=== PATIENT | male | born 2000 | race Two or more races ===

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

== ENCOUNTER 2019-01-30 16:27 | Emergency (ER) | payer OTHER, BC ==
[2019-01-30] MEDS ORDERED: Nicotine GUM* 2 MG PO PRN (17:28)
--- NOTE | 2019-01-30 17:30 | ED ---
Psychiatric Complaint - HPI Summary HPI Summary: Pt is a 18 y/o M presenting to the ED with a chief psychiatric complaint. He states he took about five tablets of 100mg Seroquel with the intention of not waking up today. When he did wake up, he told two of his friends who decided to bring him here. He currently reports SI with some abrasions on his arm. - History Of Current Complaint Chief Complaint: EDMentalHealth Time Seen by Provider: 01/30/19 17:12 Accompanied By: two friends Hx Obtained From: Patient Onset/Duration: Lasting Days, Still Present Timing: Days Severity Initially: Moderate Severity Currently: Moderate Character: Depressed Aggravating Factor(s): Nothing Alleviating Factor(s): Nothing Associated Signs And Symptoms: Positive: Negative Related History: Positive For: Prior Psychiatric Issues Has Suicidal: Reports: Thoughts, With A Plan, Has Prior Attempt(s) Ingestion History: Type/Name Of Drug - Seroquel, Amount Ingested - 5 tablets of 100mg, Approximate Time Of Ingestion - 0200 - Allergies/Home Medications Allergies/Adverse Reactions: Allergies Allergy/AdvReac Type Severity Reaction Status Date / Time No Known Allergies Allergy Verified 09/05/17 15:13 Home Medications: Home Medications Escitalopram * [Lexapro 10 mg (NF)] 10 mg PO DAILY 01/30/19 [History Confirmed 01/30/19] QUEtiapine TAB* [Seroquel 100 MG *] 100 mg PO BEDTIME 01/30/19 [History Confirmed 01/30/19] PMH/Surg Hx/FS Hx/Imm Hx Previously Healthy: Yes Endocrine/Hematology History: Denies: Hx Anticoagulant Therapy Cardiovascular History: Denies: Hx Hypertension Respiratory History: Reports: Hx Asthma Sensory History: Denies: Hx Contacts or Glasses, Hx Hearing Aid Opthamlomology History: Denies: Hx Contacts or Glasses Psychiatric History: Denies: Hx Eating Disorder, Hx Inpatient Treatment, Hx Community Mental Health Tx, Hx of Violent Episodes Against Others - Surgical History Surgery Procedure, Year, and Place: bilateral ear lobe age 14 Infectious Disease History: No Infectious Disease History: Denies: Traveled Outside the [place] in Last 30 Days - Family History Known Family History: Positive: Other - depression - Social History Alcohol Use: Occasionally Hx Substance Use: Yes Substance Use Type: Reports: Marijuana Substance Use Comment - Amount & Last Used: 2-3 week Hx Tobacco Use: Yes Smoking Status (MU): Light Every Day Tobacco Smoker Amount Used/How Often: 2-3 cigarettes per week Review of Systems Positive: Other - abrasions on R arm Positive: Depressed All Other Systems Reviewed And Are Negative: Yes Physical Exam - Summary Physical Exam Summary: Appearance: The patient is well-nourished in no acute distress and in no acute pain. Skin: The skin is warm and dry and skin color reflects adequate perfusion. There are superficial lacerations to the R forearm HEENT: The head is normocephalic and atraumatic. The pupils are equal and reactive. The conjunctivae are clear and without drainage. Nares are patent and without drainage. Mouth reveals moist mucous membranes and the throat is without erythema and exudate. The external ears are intact. The ear canals are patent and without drainage. The tympanic membranes are intact. Neck: The neck is supple with full range of motion and non-tender. There are no carotid bruits. There is no neck vein distension. Respiratory: Chest is non-tender. Lungs are clear to auscultation and breath sounds are symmetrical and equal. Cardiovascular: Heart is regular rate and rhythm. There is no murmur or rub auscultated. There is no peripheral edema and pulses are symmetrical and equal. Abdomen: The abdomen is soft and non-tender. There are normal bowel sounds heard in all four quadrants and there is no organomegaly palpated. Musculoskeletal: There is no back tenderness noted. Extremities are non-tender with full range of motion. There is good capillary refill. There is no peripheral edema or calf tenderness elicited. Neurological: Patient is alert and oriented to person, place and time. The patient has symmetrical motor strength in all four extremities. Cranial nerves are grossly intact. Deep tendon reflexes are symmetrical and equal in all four extremities. Triage Information Reviewed: Yes Vital Signs On Initial Exam: Initial Vitals Temp Pulse Resp BP Pulse Ox 98.6 F 101 20 148/100 95 01/30/19 16:35 01/30/19 16:35 01/30/19 16:35 01/30/19 16:35 01/30/19 16:35 Vital Signs Reviewed: Yes Diagnostics - Vital Signs Vital Signs Temp Pulse Resp BP Pulse Ox 01/30/19 16:35 98.6 F 101 20 148/100 95 - Laboratory Result Diagrams: 01/30/19 17:40 01/30/19 17:40 Lab Statement: Any lab studies that have been ordered have been reviewed, and results considered in the medical decision making process. - EKG 174 Cardiac Rate: NL - 89bpm EKG Rhythm: Sinus Rhythm ST Segment: Normal Ectopy: None Summary of EKG Findings: EKG at 1741 shows NSR at 89bpm with no STEMI. Course/Dx - Course Course Of Treatment: Mr. Matthews says that he took an overdose of seroquel about 2 in the morning in order to end it all. When he woke up he told a couple of his friends and they brought him here. He was nontoxic in appearance with stable vitals. He has some superficial lacerations in his right volar forearm. He states this is not the first time he has done that. He's also had suicidal ideation the past and says that he's tried to jump off a bridge before. He is being observed here while labs were obtained because of the overdose and he will be medically cleared and sent to the flex unit. - Differential Dx/Clinical Impression Provider Diagnosis: Overdose Discharge - Sign-Out/Discharge Documenting (check all that apply): Sign-Out Patient Signing out patient TO: Kirt Kirkland Patient Received Moderate/Deep Sedation with Procedure: No - Discharge Plan Condition: Stable Referrals: [facility] [place] [Primary Care Provider] - - Billing Disposition and Condition Condition: STABLE - Attestation Statements Document Initiated by Scribe: Yes Documenting Scribe: Shira Lara Provider For Whom Scribe is Documenting (Include Credential): Alfred Green MD. Scribe Attestation: Shira Cordero, patyed for Alfred Green MD. on 01/30/19 at 1812. Scribe Documentation Reviewed: Yes Provider Attestation: The documentation as recorded by the scribeShira accurately reflects the service I personally performed and the decisions made by me, Alfred Green MD. Status of Scribe Document: Viewed
[2019-01-30 17:49] LABS: ABS Basophils 0.1 10^3/ul (0-0.2); ABS Eosinophils 0.2 10^3/ul (0-0.6); ABS Lymphocytes 1.4 10^3/ul (1.0-4.8); ABS Monocytes 0.7 10^3/ul (0-0.8); ABS Neutrophils 4.8 10^3/ul (1.5-7.7); ABS Nucleated RBC 0 10^3/ul; Eosinophil % 2.7 %; Hematocrit 45 % (36-46); Hemoglobin 15.9 g/dL (14.0-18.0); Lymphocyte % 19.9 %; Mean Corpuscular HGB Conc 35 g/dL (31-36); Mean Corpuscular Hemoglobin 31 pg (27-31); Mean Corpuscular Volume 88 fL (80-94); Mean Platelet Volume 7.4 fL (7.4-10.4); Nucleated Red Blood Cells % 0.2; Platelet Count 225 10^3/uL (150-450); Red Cell Distribution Width 14 % (10.5-15); White Blood Count 7.1 10^3/uL (3.5-10.8)
[2019-01-30 18:03] LABS: Urine Appearance Clear; Urine Bilirubin Negative (Negative); Urine Blood Negative (Negative); Urine Color Yellow; Urine Glucose Negative (Negative); Urine Ketones Negative (Negative); Urine Nitrite Negative (Negative); Urine Protein Negative (Negative); Urine Urobilinogen Negative (Negative)
[2019-01-30 18:04] LABS: ALT 212 U/L (7-52); AST 88 U/L (13-39); Albumin 4.6 g/dL (3.2-5.2); Albumin/Globulin Ratio 1.6 (1-3); Alkaline Phosphatase 69 U/L (34-104); Anion Gap 7 mmol/L (2-11); BUN/Creatinine Ratio 14.5 (8-20); Blood Urea Nitrogen 11 mg/dL (6-24); CO2 Carbon Dioxide 28 mmol/L (22-32); Calcium 9.4 mg/dL (8.6-10.3); Chloride 103 mmol/L (101-111); EGFR African American 159.9 (>60); EGFR Non-African American 132.1 (>60); Globulin 2.9 g/dL (2-4); Glucose 95 mg/dL (70-100); Potassium 4.3 mmol/L (3.5-5.0); Sodium 138 mmol/L (135-145); Total Protein 7.5 g/dL (6.4-8.9)
[2019-01-30 18:12] LABS: Urine Benzodiazepine Screen Presumptive Positive (None Detect); Urine Opiates Screen None Detected (None Detect)
[2019-01-30 18:38] LABS: Acetaminophen < 15 mcg/mL; Alcohol < 10 mg/dL (<10); Salicylate < 2.50 mg/dL (<30)
--- NOTE | 2019-01-31 06:03 | ED ---
Progress - Progress Note Progress Note: Patient was signed out from Dr. Green upon shift change pending MHE and disposition. Per MHE, the patient will be held until the morning when Dr. King will evaluate the patient. Patient will be signed out to Dr. Greenwood upon shift change pending evaluation by Dr. King. - Consult/PCP Time Called: 20:00 Course/Dx - Course Course Of Treatment: Patient was signed out from Dr. Green upon shift change pending MHE and disposition. Per MHE, the patient will be held until the morning when Dr. King will evaluate the patient. Patient will be signed out to Dr. Gerenwood upon shift change pending evaluation by Dr. King. - Diagnoses Provider Diagnoses: Overdose Discharge - Sign-Out/Discharge Documenting (check all that apply): Sign-Out Patient, Receiving Sign-Out Signing out patient TO: Chris Greenwood - Upon shift change pending evaluation by Dr. King Receiving patient FROM: Alfred Green - Upon shift change pending MHE and disposition - Discharge Plan Condition: Stable Referrals: [facility] [Outside] - 1 Week (It is recommended that you contact the counseling center to discuss setting up an appointment for mental health and substance use counseling. ) [facility] - [place] [Primary Care Provider] - - Billing Disposition and Condition Condition: STABLE - Attestation Statements Document Initiated by Ankuribe: Yes Documenting Scribe: Shanda Mari Provider For Whom Jean-Pierre is Documenting (Include Credential): Dr. Kirt Kirkland MD Scribe Attestation: I, Shanda Mari, scribed for Dr. Kirt Kirkland MD on 01/31/19 at 0642. Scribe Documentation Reviewed: Yes Provider Attestation: The documentation as recorded by the Shanda foster accurately reflects the service I personally performed and the decisions made by me, Dr. Kirt Kirkland MD Status of Scribe Document: Viewed
--- NOTE | 2019-01-31 07:03 | ED ---
Progress - Progress Note Progress Note: Patient was signed out from Dr. Kirkland upon shift change pending evaluation by Dr. King and disposition. Per E, the patient will be held until the morning when Dr. King will evaluate the patient. Per Dr. King, at 1331, patient will be discharged with unspecified depression and should follow up with [facility]. - Consult/PCP Time Called: 20:00 Course/Dx - Course Course Of Treatment: Patient was signed out from Dr. Kirkland upon shift change pending evaluation by Dr. King and disposition. Per E, the patient will be held until the morning when Dr. King will evaluate the patient. Per Dr. King, at 1331, patient will be discharged with unspecified depression and should follow up with [facility]. - Diagnoses Provider Diagnoses: Depression Discharge - Sign-Out/Discharge Documenting (check all that apply): Patient Departure, Receiving Sign-Out Receiving patient FROM: Kirt Kirkland Patient Received Moderate/Deep Sedation with Procedure: No - Discharge Plan Condition: Stable Disposition: HOME Referrals: [facility] [Outside] - 1 Week (It is recommended that you contact the counseling center to discuss setting up an appointment for mental health and substance use counseling. ) [facility] - MR,Henry [Primary Care Provider] - - Attestation Statements Document Initiated by Scribe: Yes Documenting Scribe: Leighton Jones Provider For Whom Jean-Pierre is Documenting (Include Credential): Chris Greenwood MD Scribe Attestation: Leighton Cordero, scribed for Chris Greenwood MD on 01/31/19 at 1330. Status of Scribe Document: Ready
[2019-01-31 13:51] VITALS: BP 150/74
== END 2019-01-31 13:50 | disposition home or self-care (01) ==
LOC: ED 16:27
DX: T43.592A Poisoning by other antipsychotics and neuroleptics, intentional self-harm, initial encounter (principal); J45.909 Unspecified asthma, uncomplicated; F17.210 Nicotine dependence, cigarettes, uncomplicated
CPT/HCPCS: 36415; 80053; 80307; 80320; 80329; 81003; 83605; 85025; 93005; 99285; A9270-GY; G0480

== ENCOUNTER 2019-07-23 00:46 | Inpatient (IN) | payer OTHER, BC ==
--- NOTE | 2019-07-23 01:20 | ED ---
Psychiatric Complaint - HPI Summary HPI Summary: This patient is a 19 year old M presenting to [facility] with a chief complaint of depression and suicidal thoughts since 2 months ago. It has been building up over time. Pt reports cutting his right wrist with a straight razor. A friend drove him to the hospital. Pt feels overwhelmed by school and put his mental health on the back burner. Pt has PMHx of asthma. - History Of Current Complaint Chief Complaint: EDSuicidal Time Seen by Provider: 07/23/19 01:09 Hx Obtained From: Patient Onset/Duration: Gradual Onset, Lasting Weeks, Still Present Timing: Constant Severity Initially: Moderate Severity Currently: Severe Character: Depressed Aggravating Factor(s): Recent Stress Alleviating Factor(s): Nothing Associated Signs And Symptoms: Positive: Social Withdrawal Has Suicidal: Reports: Thoughts, Demonstrates Gesture Recent Stressor(s): School - Allergies/Home Medications Allergies/Adverse Reactions: Allergies Allergy/AdvReac Type Severity Reaction Status Date / Time No Known Allergies Allergy Verified 01/31/19 13:49 PMH/Surg Hx/FS Hx/Imm Hx Endocrine/Hematology History: Denies: Hx Anticoagulant Therapy Cardiovascular History: Denies: Hx Hypertension Respiratory History: Reports: Hx Asthma Sensory History: Denies: Hx Contacts or Glasses, Hx Hearing Aid Opthamlomology History: Denies: Hx Contacts or Glasses Psychiatric History: Denies: Hx Eating Disorder, Hx Inpatient Treatment, Hx Community Mental Health Tx, Hx of Violent Episodes Against Others - Surgical History Surgery Procedure, Year, and Place: bilateral ear lobe age 14 Infectious Disease History: No Infectious Disease History: Reports: Traveled Outside the [place] in Last 30 Days - Family History Known Family History: Positive: Other - depression - Social History Alcohol Use: Occasionally Hx Substance Use: Yes Substance Use Type: Reports: Marijuana Substance Use Comment - Amount & Last Used: 2-3 week Hx Tobacco Use: Yes Smoking Status (MU): Light Every Day Tobacco Smoker Amount Used/How Often: 2-3 cigarettes per week Review of Systems Negative: Fever Positive: Depressed All Other Systems Reviewed And Are Negative: Yes Physical Exam - Summary Physical Exam Summary: Appearance: Well-appearing, Well-nourished, lying in bed comfortable Skin: Warm, dry, no obvious rash Eyes: sclera anicteric, no conjunctival pallor ENT: mucous membranes moist Neck: deferred Respiratory: No signs of respiratory distress Cardiovascular: Appears well perfused, pulses are nml Abdomen: deferred Musculoskeletal: Moving all 4 extremities without obvious discomfort Neurological: Awake and alert, mentation is normal, speech is fluent and appropriate Psychiatric: affect is normal, does not appear anxious or depressed Triage Information Reviewed: Yes Vital Signs On Initial Exam: Initial Vitals Temp Pulse Resp BP Pulse Ox 98.1 F 82 16 140/73 97 07/23/19 00:47 07/23/19 00:47 07/23/19 00:47 07/23/19 00:47 07/23/19 00:47 Vital Signs Reviewed: Yes Procedures - Sedation Patient Received Moderate/Deep Sedation with Procedure: No Diagnostics - Vital Signs Vital Signs Temp Pulse Resp BP Pulse Ox 07/23/19 00:47 98.1 F 82 16 140/73 97 - Laboratory Result Diagrams: 07/23/19 01:21 07/23/19 01:21 Lab Statement: Any lab studies that have been ordered have been reviewed, and results considered in the medical decision making process. Re-Evaluation - Re-Evaluation First Eval Re-Evaluation Time: 13:19 Comment: Pt is medically cleared. Second Eval Re-Evaluation Time: 03:04 Comment: Dr. Valenzuela accepts pt for admission. Course/Dx - Course Course Of Treatment: This patient is a 19 year old M presenting to [facility] with a chief complaint of depression and suicidal thoughts since 2 months ago. It has been building up over time. Pt reports cutting his right wrist with a straight razor. A friend drove him to the hospital. Pt feels overwhelmed by school and put his mental health on the back burner. Pt has PMHx of asthma. Blood work obtained. UA obtained. We discussed patient care with mental health assistant housekeeping manager and Dr. Valenzuela accepts pt for admission. Patient will be admitted. The patient is agreeable with this plan. - Differential Dx/Clinical Impression Provider Diagnosis: Depression, Suicidal ideation Discharge ED - Sign-Out/Discharge Documenting (check all that apply): Patient Departure - Admission - Discharge Plan Condition: Stable Disposition: PSYCHIATRIC FACILITY-[facility] - Billing Disposition and Condition Condition: STABLE Disposition: Psychiatric Facility [facility] - Attestation Statements Document Initiated by Scribe: Yes Documenting Scribe: Samantha Torres Provider For Whom Scribe is Documenting (Include Credential): Alfred Simpson MD Scribe Attestation: I, Samantha Torres, scribed for Alfred Simpson MD on 07/25/19 at 1919. Scribe Documentation Reviewed: Yes Provider Attestation: The documentation as recorded by the yarielibe, Samantha Torres accurately reflects the service I personally performed and the decisions made by me, Alfred Simpson MD Status of Scribe Document: Viewed
[2019-07-23 01:29] LABS: Urine Appearance Cloudy; Urine Bilirubin Negative (Negative); Urine Blood Negative (Negative); Urine Color Yellow; Urine Glucose Negative (Negative); Urine Ketones Negative (Negative); Urine Nitrite Negative (Negative); Urine Protein Negative (Negative); Urine Specific Gravity 1.017 (1.010-1.030); Urine Urobilinogen Negative (Negative)
[2019-07-23 01:29] LABS: ABS Eosinophils 0.1 10^3/ul (0-0.6); ABS Lymphocytes 2.2 10^3/ul (1.0-4.8); ABS Monocytes 0.8 10^3/ul (0-0.8); ABS Neutrophils 5.8 10^3/ul (1.5-7.7); Eosinophil % 1.5 %; Hematocrit 45 % (42-52); Hemoglobin 15.8 g/dL (14.0-18.0); Lymphocyte % 24.8 %; Mean Corpuscular HGB Conc 35 g/dL (31-36); Mean Corpuscular Hemoglobin 31 pg (27-31); Mean Corpuscular Volume 87 fL (80-94); Mean Platelet Volume 7.5 fL (7.4-10.4); Nucleated Red Blood Cells % 0.1; Platelet Count 245 10^3/uL (150-450); Red Blood Count 5.18 10^6 /uL (4.18-5.48); Red Cell Distribution Width 14 % (10-15)
[2019-07-23 04:06] LABS: Urine Benzodiazepine Screen None Detected (None Detect); Urine Opiates Screen None Detected (None Detect)
[2019-07-23 04:06] LABS: ALT 73 U/L (7-52); AST 36 U/L (13-39); Acetaminophen < 15 mcg/mL; Albumin 4.5 g/dL (3.2-5.2); Albumin/Globulin Ratio 1.7 (1-3); Alcohol < 10 mg/dL (<10); Alkaline Phosphatase 69 U/L (34-104); Anion Gap 8 mmol/L (2-11); BUN/Creatinine Ratio 15.2 (8-20); Blood Urea Nitrogen 12 mg/dL (6-24); CO2 Carbon Dioxide 26 mmol/L (22-32); Calcium 9.9 mg/dL (8.6-10.3); Chloride 102 mmol/L (101-111); EGFR African American 151.3 (>60); Globulin 2.6 g/dL (2-4); Glucose 95 mg/dL (70-100); Potassium 3.6 mmol/L (3.5-5.0); Salicylate < 2.50 mg/dL (<30); Sodium 136 mmol/L (135-145); TSH (Thyroid Stimulating Horm) 4.87 mcIU/mL (0.34-5.60); Total Protein 7.1 g/dL (6.4-8.9)
[2019-07-23] MEDS ORDERED: Al Hydrox/Mg Hydrox/Simet LIQ* 30 ML UDC PO PRN (06:27)
[2019-07-23] MEDS ORDERED: Acetaminophen TAB* 325 MG PO PRN (06:27)
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
[2019-07-23] MEDS: Vitamin THERAPEUTIC TAB PO SCH (11:25)
[2019-07-23] MEDS ORDERED: Albuterol HFA INHALER* 8 gm MDI INH PRN (12:28)
[2019-07-23] MEDS: Nicotine PATCH 14 MG/24 HR* PATCH TRANSDERM SCH (13:11)
[2019-07-23] MEDS: ARIPiprazole TAB* 2 MG PO SCH (13:11)
[2019-07-23] MEDS: Escitalopram * 10 MG TAB PO SCH (17:43)
[2019-07-23] MEDS: Nicotine* 2MG (FRUIT FLAVOR) GUM PO PRN (21:47)
[2019-07-24] MEDS: Nicotine Patch Removal NOTE FOLLOW UP SCH (06:00)
[2019-07-24 07:10] LABS: HDL Cholesterol 34.6 mg/dL
[2019-07-24] MEDS: Nicotine* 2MG (FRUIT FLAVOR) GUM PO PRN (08:32)
[2019-07-24] MEDS: Vitamin THERAPEUTIC TAB PO SCH (08:33)
[2019-07-24] MEDS: ARIPiprazole TAB* 2 MG PO SCH (08:33)
[2019-07-24] MEDS ORDERED: Influenza VAC *QUAD* 2019-20* 0.5 ML SYRINGE IM ONE (09:00)
[2019-07-24] MEDS: Escitalopram * 10 MG TAB PO SCH (09:06)
[2019-07-24] MEDS: Nicotine PATCH 14 MG/24 HR* PATCH TRANSDERM SCH (09:08)
--- NOTE | 2019-07-24 10:23 | PN ---
Subjective - Subjective Date of Service: 07/24/19 Service Type: [id number] Hosp care 35 min high complexity Subjective: Nursing Report: Patient was visible on unit, no behavioral incidents. Slept overnight. He is attending group activities. CC: "Better" Patient was seen and evaluated in the common room. The patient reported he feels safe on the unit and is interacting with peers. He reported having adequate appetite and sleep. The patient reports attending and participating in day groups. Per nursing no behavioral issues or overnight events reported. Patient reported that he is tolerating medications without side effects. Patient reported "not being in my head as much" . Objective - General Observations Appearance: Disheveled Appears Stated Age: Yes Stature: Overweight Posture: Slumped Eye Contact: Average Behavior/Activity: WNL - Interaction Observations Attitude Towards Examiner: Cooperative Stated Mood: Dysphoric Affect: Blunted Speech Pattern/Tone: Clear Thought Process: Coherent Perception: WNL Thought Content: Depressive, Self-Deprecatory Thought Process: Lethality: Passive Wish Hallucination Type: None Delusion Type: None - Cognitive Function Orientation: A&O x 4 Level of Consciousness: Awake - Medication Compliance Cooperative with Inpatient Medication Regimen: Yes - Group Participation Participates in Group Activities: Partial Assessment - Assessment Merits Inpatient Hospitalization: For Immediate Safety Clinical Impression: 19 year old [place] male [employer] with history of depression came to the hospital and was admitted to the BSU at [facility] after making a suicide attempt by cutting his wrist. Plan - Plan Treatment Plan: Name: WILL ODONNELL Birthdate: 2000 [id number] #Q30 minute observation with staff pass and computer # The patient requires psychiatric inpatient admission at this time to assure safety, receive treatment and work toward stabilization. # EKG ordered for risk of QT prolongation of antipsychotic medication. # Patient has multiple risk factors for suicide and will require time for plan of care of psychiatric stabilization. # [place] Safe Act completed #QTc 416 # Arrange Family meeting # Mother confirmed that all firearms have been removed from the home #Continue Abilify 2mg po qhs for depression augmentation # Increase lexapro 20mg po qhs for depression # Implement Aristada long acting injection given due to past compliance issues with medication . # Obtain collateral information once release is signed. # Collaboration with Social Work Tobacco use disorder: nicotine supplement offered and put in place. #Goals before discharge include: To eliminate/ reduce suicidal ideation Tentative Discharge: Pending psychiatric stabilization Sodium 136 mmol/L (135-145) 07/23/19 01:21 Potassium 3.6 mmol/L (3.5-5.0) 07/23/19 01:21 BUN 12 mg/dL (6-24) 07/23/19 01:21 Creatinine 0.79 mg/dL (0.67-1.17) 07/23/19 01:21 Hemoglobin A1c 5.4 % (4.0-5.6) 07/24/19 06:21 Calcium 9.9 mg/dL (8.6-10.3) 07/23/19 01:21 AST 36 U/L (13-39) 07/23/19 01:21 ALT 73 U/L (7-52) H 07/23/19 01:21 Triglycerides 85 mg/dL 07/24/19 06:21 Cholesterol 147 mg/dL 07/24/19 06:21 LDL Cholesterol 95 mg/dL 07/24/19 06:21 Continued Medication Management: Continue Outpt Medication Medications: Current Medications Acetaminophen (Tylenol Tab*) 650 mg PO Q4H PRN PRN Reason: PAIN or TEMP > 101 F Al Hydrox/Mg Hydrox/Simethicone (Maalox Plus*) 30 ml PO Q4H PRN PRN Reason: INDIGESTION Albuterol (Ventolin Hfa Inhaler*) 1 puff INH Q6H PRN PRN Reason: SOB/WHEEZING Aripiprazole (Abilify Tab*) 2 mg PO DAILY [facility] Last Admin: 07/24/19 08:33 Dose: 2 mg Escitalopram Oxalate (Lexapro *) 10 mg PO DAILY [facility] Last Admin: 07/24/19 09:06 Dose: 10 mg Multivitamins (Theragran Tab*) 1 tab PO DAILY [facility] Last Admin: 07/24/19 08:33 Dose: 1 tab Nicotine (Nicotine Patch 14 Mg/24 Hr*) 1 patch TRANSDERM DAILY [facility] Last Admin: 07/24/19 09:08 Dose: Not Given Nicotine Polacrilex (Nicotine Gum*) 2 mg PO Q2H PRN PRN Reason: CRAVING Last Admin: 07/24/19 08:32 Dose: 2 mg Pharmacy Profile Note (Nicotine Patch Removal Note*) 1 note FOLLOW UP 0600 [facility] Last Admin: 07/24/19 06:00 Dose: 1 note - Discharge Plan Discharge Plan: Inpatient Hospitalization Outpatient Program: Counseling/Psych Services at [place]
[2019-07-25] MEDS: Nicotine Patch Removal NOTE FOLLOW UP SCH (10:02)
[2019-07-25] MEDS: Vitamin THERAPEUTIC TAB PO SCH (10:03)
[2019-07-25] MEDS: Nicotine PATCH 14 MG/24 HR* PATCH TRANSDERM SCH (10:03)
[2019-07-25] MEDS: ARIPiprazole TAB* 2 MG PO SCH (21:36)
[2019-07-25] MEDS: Escitalopram * 10 MG TAB PO SCH (21:36)
[2019-07-26] MEDS: Nicotine PATCH 14 MG/24 HR* PATCH TRANSDERM SCH (10:48)
[2019-07-26] MEDS: Vitamin THERAPEUTIC TAB PO SCH (10:48)
[2019-07-26] MEDS: Nicotine Patch Removal NOTE FOLLOW UP SCH (10:48)
--- NOTE | 2019-07-26 12:38 | PN ---
Subjective - Subjective Date of Service: 07/26/19 Service Type: [id number] Hosp care 25 min moderate complexity Subjective: Sam although not suicidal anymore continues to be 4/10 depressed. In the milieu social with peers. Appears to be tolerating all of his meds well and says they are helping. Objective - General Observations Appearance: Unkempt Stature: Overweight Posture: WNL Eye Contact: Average Behavior/Activity: WNL - Interaction Observations Attitude Towards Examiner: Cooperative Stated Mood: Dysphoric Affect: Restricted Speech Pattern/Tone: Clear, Appropriate, Quiet Volume Thought Process: Coherent, Goal Directed Perception: WNL Thought Content: WNL Thought Process: Lethality: Passive Wish Hallucination Type: None Delusion Type: None - Cognitive Function Orientation: A&O x 4 Level of Consciousness: Awake, Alert, Appropriate Cognition: WNL Estimated Intelligence: Normal Insight: Mostly Blames Others for Problems Judgment Within Normal Limits: No - Medication Compliance Cooperative with Inpatient Medication Regimen: Yes - Group Participation Participates in Group Activities: Yes Assessment - Assessment Merits Inpatient Hospitalization: For Immediate Safety, For Stabilization, Pending Safe DC Plan Clinical Impression: 19 year old [place] male [place] Student with history of depression came to the hospital and was admitted to the BSU at [facility] after making a suicide attempt by cutting his wrist. Plan - Plan Treatment Plan: Name: SAM ODONNELL Birthdate: 2000 [id number] #Q30 minute observation with staff pass and computer # The patient requires psychiatric inpatient admission at this time to assure safety, receive treatment and work toward stabilization. # EKG ordered for risk of QT prolongation of antipsychotic medication. # Patient has multiple risk factors for suicide and will require time for plan of care of psychiatric stabilization. # [place] Safe [place] completed #QTc 416 # Arrange Family meeting # Mother confirmed that all firearms have been removed from the home #Continue Abilify 2mg po qhs for depression augmentation # Increase lexapro 20mg po qhs for depression # Implement Aristada long acting injection given due to past compliance issues with medication . # Obtain collateral information once release is signed. # Collaboration with Social Work Tobacco use disorder: nicotine supplement offered and put in place. #Goals before discharge include: To eliminate/ reduce suicidal ideation Tentative Discharge: Pending psychiatric stabilization Sodium 136 mmol/L (135-145) 07/23/19 01:21 Potassium 3.6 mmol/L (3.5-5.0) 07/23/19 01:21 BUN 12 mg/dL (6-24) 07/23/19 01:21 Creatinine 0.79 mg/dL (0.67-1.17) 07/23/19 01:21 Hemoglobin A1c 5.4 % (4.0-5.6) 07/24/19 06:21 Calcium 9.9 mg/dL (8.6-10.3) 07/23/19 01:21 AST 36 U/L (13-39) 07/23/19 01:21 ALT 73 U/L (7-52) H 07/23/19 01:21 Triglycerides 85 mg/dL 07/24/19 06:21 Cholesterol 147 mg/dL 07/24/19 06:21 LDL Cholesterol 95 mg/dL 07/24/19 06:21 Continued Medication Management: Continue Outpt Medication Medications: Current Medications Acetaminophen (Tylenol Tab*) 650 mg PO Q4H PRN PRN Reason: PAIN or TEMP > 101 F Al Hydrox/Mg Hydrox/Simethicone (Maalox Plus*) 30 ml PO Q4H PRN PRN Reason: INDIGESTION Albuterol (Ventolin Hfa Inhaler*) 1 puff INH Q6H PRN PRN Reason: SOB/WHEEZING Aripiprazole (Abilify Tab*) 2 mg PO 2100 [facility] Last Admin: 07/25/19 21:36 Dose: 2 mg Escitalopram Oxalate (Lexapro *) 20 mg PO 2100 [facility] Last Admin: 07/25/19 21:36 Dose: 20 mg Multivitamins (Theragran Tab*) 1 tab PO DAILY [facility] Last Admin: 07/26/19 10:48 Dose: Not Given Nicotine (Nicotine Patch 14 Mg/24 Hr*) 1 patch TRANSDERM DAILY [facility] Last Admin: 07/26/19 10:48 Dose: Not Given Nicotine Polacrilex (Nicotine Gum*) 2 mg PO Q2H PRN PRN Reason: CRAVING Last Admin: 07/24/19 08:32 Dose: 2 mg Pharmacy Profile Note (Nicotine Patch Removal Note*) 1 note FOLLOW UP 0600 [facility] Last Admin: 07/26/19 10:48 Dose: Not Given - Discharge Plan Discharge Plan: Outpatient Follow Up Outpatient Program: Counseling/Psych Services at [place]
[2019-07-26] MEDS: Escitalopram * 10 MG TAB PO SCH (20:47)
[2019-07-26] MEDS: ARIPiprazole TAB* 2 MG PO SCH (20:47)
--- NOTE | 2019-07-27 10:16 | PN ---
Subjective - Subjective Date of Service: 07/27/19 Service Type: [id number] Hosp care 35 min high complexity Subjective: Nursing Report: Patient was visible on unit, no behavioral incidents. Slept overnight. He is attending group activities. CC: "Fine" Patient was seen and evaluated in the common room. The patient feels his parents are hovering over him and not giving him much space. He reported having adequate appetite and sleep. The patient reports attending and participating in day groups. Per nursing no behavioral issues or overnight events reported. Patient reported that he is tolerating medications without side effects. Patient is hopeful about starting lithium. Objective - General Observations Appearance: Neat Appears Stated Age: Yes Stature: WNL Posture: WNL Eye Contact: Average Behavior/Activity: WNL - Interaction Observations Attitude Towards Examiner: Cooperative Stated Mood: Dysphoric Affect: Blunted Speech Pattern/Tone: Clear Thought Process: Coherent Perception: WNL Thought Content: Self-Deprecatory Thought Process: Lethality: Passive Wish Hallucination Type: None Delusion Type: None - Cognitive Function Orientation: A&O x 4 Level of Consciousness: Awake - Medication Compliance Cooperative with Inpatient Medication Regimen: Yes - Group Participation Participates in Group Activities: Yes Assessment - Assessment Merits Inpatient Hospitalization: For Immediate Safety Clinical Impression: 19 year old Portuguese male [place] Student with history of depression came to the hospital and was admitted to the B[facility] at [facility] after making a suicide attempt by cutting his wrist. Plan - Plan Treatment Plan: Name: WILL ODONNELL Birthdate: 2000 [id number] #Q30 minute observation with staff pass and computer # The patient requires psychiatric inpatient admission at this time to assure safety, receive treatment and work toward stabilization. # EKG ordered for risk of QT prolongation of antipsychotic medication. # Patient has multiple risk factors for suicide and will require time for plan of care of psychiatric stabilization. # [place] completed # QTc 416 # Start lithium 150mg BID for mood and to reduce suicide risk # Arrange Family meeting at 2pm # Mother confirmed that all firearms have been removed from the home #Continue Abilify 2mg po qhs for depression augmentation # Continue Lexapro 20mg po qhs for depression # Obtain collateral information once release is signed. # Patient unsure about taking medical leave # Collaboration with Social Work Tobacco use disorder: nicotine supplement offered and put in place. #Goals before discharge include: To eliminate/ reduce suicidal ideation Tentative Discharge: Pending psychiatric stabilization Sodium 136 mmol/L (135-145) 07/23/19 01:21 Potassium 3.6 mmol/L (3.5-5.0) 07/23/19 01:21 BUN 12 mg/dL (6-24) 07/23/19 01:21 Creatinine 0.79 mg/dL (0.67-1.17) 07/23/19 01:21 Hemoglobin A1c 5.4 % (4.0-5.6) 07/24/19 06:21 Calcium 9.9 mg/dL (8.6-10.3) 07/23/19 01:21 AST 36 U/L (13-39) 07/23/19 01:21 ALT 73 U/L (7-52) H 07/23/19 01:21 Triglycerides 85 mg/dL 07/24/19 06:21 Cholesterol 147 mg/dL 07/24/19 06:21 LDL Cholesterol 95 mg/dL 07/24/19 06:21 Continued Medication Management: Continue Outpt Medication Medications: Current Medications Acetaminophen (Tylenol Tab*) 650 mg PO Q4H PRN PRN Reason: PAIN or TEMP > 101 F Al Hydrox/Mg Hydrox/Simethicone (Maalox Plus*) 30 ml PO Q4H PRN PRN Reason: INDIGESTION Albuterol (Ventolin Hfa Inhaler*) 1 puff INH Q6H PRN PRN Reason: SOB/WHEEZING Aripiprazole (Abilify Tab*) 2 mg PO 2100 [facility] Last Admin: 07/26/19 20:47 Dose: 2 mg Escitalopram Oxalate (Lexapro *) 20 mg PO 2100 [facility] Last Admin: 07/26/19 20:47 Dose: 20 mg Multivitamins (Theragran Tab*) 1 tab PO DAILY [facility] Last Admin: 07/26/19 10:48 Dose: Not Given Nicotine (Nicotine Patch 14 Mg/24 Hr*) 1 patch TRANSDERM DAILY [facility] Last Admin: 07/26/19 10:48 Dose: Not Given Nicotine Polacrilex (Nicotine Gum*) 2 mg PO Q2H PRN PRN Reason: CRAVING Last Admin: 07/24/19 08:32 Dose: 2 mg Pharmacy Profile Note (Nicotine Patch Removal Note*) 1 note FOLLOW UP 0600 [facility] Last Admin: 10/20/19 10:48 Dose: Not Given - Discharge Plan Discharge Plan: Inpatient Hospitalization Outpatient Program: Counseling/Psych Services at [place]
[2019-07-27] MEDS: Vitamin THERAPEUTIC TAB PO SCH (10:37)
[2019-07-27] MEDS: Nicotine PATCH 14 MG/24 HR* PATCH TRANSDERM SCH (10:37)
[2019-07-27] MEDS: Nicotine Patch Removal NOTE FOLLOW UP SCH (10:37)
[2019-07-27] MEDS: Lithium Carbonate CAP 150 MG ** CAPSULE PO SCH ×2 (11:45→20:36)
[2019-07-27] MEDS: ARIPiprazole TAB* 2 MG PO SCH (20:35)
[2019-07-27] MEDS: Escitalopram * 10 MG TAB PO SCH (20:37)
[2019-07-28] MEDS: Vitamin THERAPEUTIC TAB PO SCH (07:46)
[2019-07-28] MEDS: Lithium Carbonate CAP 150 MG ** CAPSULE PO SCH ×2 (07:47→20:32)
[2019-07-28] MEDS: Nicotine PATCH 14 MG/24 HR* PATCH TRANSDERM SCH (07:48)
[2019-07-28] MEDS: Nicotine Patch Removal NOTE FOLLOW UP SCH (07:48)
--- NOTE | 2019-07-28 11:09 | PN ---
Subjective - Subjective Date of Service: 07/28/19 Service Type: [id number] Hosp care 35 min high complexity Subjective: The patient was seen and evaluated today. The patient reported having adequate appetite and sleep. The patient reports attending and participating in day groups. Per nursing no behavioral issues or overnight events reported. Patient reported tolerating medications without side effects. Objective - General Observations Appearance: Neat Appears Stated Age: Yes Stature: Overweight Posture: Slumped Eye Contact: Average Behavior/Activity: WNL - Interaction Observations Attitude Towards Examiner: Cooperative Stated Mood: Euthymic Affect: Blunted Speech Pattern/Tone: Clear Thought Process: Coherent Perception: WNL Thought Content: WNL Hallucination Type: None Delusion Type: None - Cognitive Function Orientation: A&O x 4 Level of Consciousness: Awake Assessment - Assessment Merits Inpatient Hospitalization: For Immediate Safety Clinical Impression: 19 year old Somali male [place] Student with history of depression came to the hospital and was admitted to the B[facility] at [facility] after making a suicide attempt by cutting his wrist. Plan - Plan Treatment Plan: Name: WILL ODONNELL Birthdate: 2000 [id number] #Q30 minute observation with staff pass and computer # The patient requires psychiatric inpatient admission at this time to assure safety, receive treatment and work toward stabilization. # EKG ordered for risk of QT prolongation of antipsychotic medication. # Patient has multiple risk factors for suicide and will require time for plan of care of psychiatric stabilization. # [place] completed # Continue lithium 150mg BID for mood and to reduce suicide risk # Arrange Family meeting at 330pm # Mother confirmed that all firearms have been removed from the home # Continue Lexapro 20mg po qhs for depression # Obtain collateral information once release is signed. # Patient plans to take a medical leave # [place] level ordered for tomorrow # Appointment for [facility] # Collaboration with Social Work Tobacco use disorder: nicotine supplement offered and put in place. #Goals before discharge include: To eliminate/ reduce suicidal ideation Tentative Discharge: Sodium 136 mmol/L (135-145) 07/23/19 01:21 Potassium 3.6 mmol/L (3.5-5.0) 07/23/19 01:21 BUN 12 mg/dL (6-24) 07/23/19 01:21 Creatinine 0.79 mg/dL (0.67-1.17) 07/23/19 01:21 Hemoglobin A1c 5.4 % (4.0-5.6) 07/24/19 06:21 Calcium 9.9 mg/dL (8.6-10.3) 07/23/19 01:21 AST 36 U/L (13-39) 07/23/19 01:21 ALT 73 U/L (7-52) H 07/23/19 01:21 Triglycerides 85 mg/dL 07/24/19 06:21 Cholesterol 147 mg/dL 07/24/19 06:21 LDL Cholesterol 95 mg/dL 07/24/19 06:21 Continued Medication Management: Continue Outpt Medication Medications: Current Medications Acetaminophen (Tylenol Tab*) 650 mg PO Q4H PRN PRN Reason: PAIN or TEMP > 101 F Al Hydrox/Mg Hydrox/Simethicone (Maalox Plus*) 30 ml PO Q4H PRN PRN Reason: INDIGESTION Albuterol (Ventolin Hfa Inhaler*) 1 puff INH Q6H PRN PRN Reason: SOB/WHEEZING Aripiprazole (Abilify Tab*) 2 mg PO 2100 [facility] Last Admin: 07/27/19 20:35 Dose: 2 mg Escitalopram Oxalate (Lexapro *) 20 mg PO 2100 [facility] Last Admin: 07/27/19 20:37 Dose: 20 mg [place] Carbonate ([place] Carbonate Cap) 150 mg PO BID [facility] Last Admin: 07/28/19 07:47 Dose: 150 mg Multivitamins (Theragran Tab*) 1 tab PO DAILY [facility] Last Admin: 07/28/19 07:46 Dose: 1 tab Nicotine (Nicotine Patch 14 Mg/24 Hr*) 1 patch TRANSDERM DAILY [facility] Last Admin: 07/28/19 07:48 Dose: Not Given Nicotine Polacrilex (Nicotine Gum*) 2 mg PO Q2H PRN PRN Reason: CRAVING Last Admin: 07/24/19 08:32 Dose: 2 mg Pharmacy Profile Note (Nicotine Patch Removal Note*) 1 note FOLLOW UP 0600 [facility] Last Admin: 07/28/19 07:48 Dose: Not Given - Discharge Plan Discharge Plan: Inpatient Hospitalization Outpatient Program: Counseling/Psych Services at [place]
[2019-07-28] MEDS: Escitalopram * 10 MG TAB PO SCH (20:32)
[2019-07-29] MEDS: Vitamin THERAPEUTIC TAB PO SCH (08:19)
[2019-07-29] MEDS: Lithium Carbonate CAP 150 MG ** CAPSULE PO SCH ×2 (08:19→20:33)
[2019-07-29] MEDS: Nicotine PATCH 14 MG/24 HR* PATCH TRANSDERM SCH (08:20)
[2019-07-29] MEDS: Nicotine Patch Removal NOTE FOLLOW UP SCH (10:17)
--- NOTE | 2019-07-29 11:42 | PN ---
Subjective - Subjective Date of Service: 07/29/19 Service Type: [id number] Hosp care 35 min high complexity Subjective: The patient was seen and evaluated today. The patient reported looking forward to being discharged tomorrow. He denied self defeating thoughts The patient reported attending and participating in day groups. Per nursing no behavioral issues or overnight events reported. Patient reported tolerating medications without side effects. Objective - General Observations Appearance: Neat Appears Stated Age: Yes Stature: Overweight Posture: WNL Eye Contact: Average Behavior/Activity: WNL - Interaction Observations Attitude Towards Examiner: Cooperative Stated Mood: Euthymic Affect: Full Speech Pattern/Tone: Clear Thought Process: Coherent Perception: WNL Thought Content: WNL Hallucination Type: None Delusion Type: None - Cognitive Function Orientation: A&O x 4 Level of Consciousness: Awake - Medication Compliance Cooperative with Inpatient Medication Regimen: Yes - Group Participation Participates in Group Activities: Yes Assessment - Assessment Merits Inpatient Hospitalization: For Immediate Safety Clinical Impression: 19 year old [place]ic male [place] Student with history of depression came to the hospital and was admitted to the BSU at [facility] after making a suicide attempt by cutting his wrist. Plan - Plan Treatment Plan: Name: WILL ODONNELL Birthdate: 2000 [id number] #Q30 minute observation with staff pass and computer # The patient requires psychiatric inpatient admission at this time to assure safety, receive treatment and work toward stabilization. # EKG ordered QTc 416 # Patient has multiple risk factors for suicide and will require time for plan of care of psychiatric stabilization. # [place] completed # Continue lithium 150mg BID for mood and to reduce suicide risk # Family meeting at 330pm # Mother confirmed that all firearms have been removed from the home # Continue Lexapro 20mg po qhs for depression # Obtain collateral information once release is signed. # Patient plans to take a medical leave # [place] level ordered # [facility]ointment for [facility] # Collaboration with Social Work Tobacco use disorder: nicotine supplement offered and put in place. #Goals before discharge include: To eliminate/ reduce suicidal ideation Tentative Discharge: Sodium 136 mmol/L (135-145) 07/23/19 01:21 Potassium 3.6 mmol/L (3.5-5.0) 07/23/19 01:21 BUN 12 mg/dL (6-24) 07/23/19 01:21 Creatinine 0.79 mg/dL (0.67-1.17) 07/23/19 01:21 Hemoglobin A1c 5.4 % (4.0-5.6) 07/24/19 06:21 Calcium 9.9 mg/dL (8.6-10.3) 07/23/19 01:21 AST 36 U/L (13-39) 07/23/19 01:21 ALT 73 U/L (7-52) H 07/23/19 01:21 Triglycerides 85 mg/dL 07/24/19 06:21 Cholesterol 147 mg/dL 07/24/19 06:21 LDL Cholesterol 95 mg/dL 07/24/19 06:21 Continued Medication Management: Continue Outpt Medication Medications: Current Medications Acetaminophen (Tylenol Tab*) 650 mg PO Q4H PRN PRN Reason: PAIN or TEMP > 101 F Al Hydrox/Mg Hydrox/Simethicone (Maalox Plus*) 30 ml PO Q4H PRN PRN Reason: INDIGESTION Albuterol (Ventolin Hfa Inhaler*) 1 puff INH Q6H PRN PRN Reason: SOB/WHEEZING Escitalopram Oxalate (Lexapro *) 20 mg PO 2100 [facility] Last Admin: 07/28/19 20:32 Dose: 20 mg [place] Carbonate ([place] Carbonate Cap) 150 mg PO BID [facility] Last Admin: 07/29/19 08:19 Dose: 150 mg Multivitamins (Theragran Tab*) 1 tab PO DAILY [facility] Last Admin: 07/29/19 08:19 Dose: 1 tab Nicotine (Nicotine Patch 14 Mg/24 Hr*) 1 patch TRANSDERM DAILY [facility] Last Admin: 07/29/19 08:20 Dose: Not Given Nicotine Polacrilex (Nicotine Gum*) 2 mg PO Q2H PRN PRN Reason: CRAVING Last Admin: 07/24/19 08:32 Dose: 2 mg Pharmacy Profile Note (Nicotine Patch Removal Note*) 1 note FOLLOW UP 0600 [facility] Last Admin: 07/29/19 10:17 Dose: Not Given - Discharge Plan Discharge Plan: Inpatient Hospitalization Outpatient Program: Counseling/Psych Services at [place]
[2019-07-29] MEDS: Escitalopram * 10 MG TAB PO SCH (20:33)
[2019-07-29] MEDS: Nicotine* 2MG (FRUIT FLAVOR) GUM PO PRN (22:06)
[2019-07-30] MEDS: Lithium Carbonate CAP 150 MG ** CAPSULE PO SCH (08:42)
[2019-07-30] MEDS: Vitamin THERAPEUTIC TAB PO SCH (08:42)
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
[2019-07-30] MEDS: Nicotine Patch Removal NOTE FOLLOW UP SCH (09:27)
[2019-07-30] MEDS: Nicotine PATCH 14 MG/24 HR* PATCH TRANSDERM SCH (09:27)
[2019-07-30 12:44] VITALS: BP 145/83
[2019-07-30] MEDS: Nicotine* 2MG (FRUIT FLAVOR) GUM PO PRN (14:00)
== END 2019-07-30 16:34 | disposition home or self-care (01) | DRG 885 ==
LOC: ED 00:46 → BSU 05:34
PROVIDERS: ADMIT Psychiatry & Neurology Psychiatry; ATTEND Psychiatry & Neurology Psychiatry
DX: F32.2 Major depressive disorder, single episode, severe without psychotic features (principal); J45.909 Unspecified asthma, uncomplicated; E66.3 Overweight; F12.90 Cannabis use, unspecified, uncomplicated; F17.210 Nicotine dependence, cigarettes, uncomplicated; Z23 Encounter for immunization; Z91.5 Personal history of self-harm; Z72.89 Other problems related to lifestyle
CPT/HCPCS: 36415; 80053; 80061; 80178; 80307; 80320; 80329; 81003; 83036; 84443; 85025; 90686; 93005; 99222; 99232; 99233; 99238; 99283; A9270-GY; G0480

== ENCOUNTER 2019-08-16 18:08 | Emergency (ER) | payer OTHER, BC ==
--- NOTE | 2019-08-16 18:09 | ED ---
Lower Extremity - HPI Summary HPI Summary: 19 yo male presents with LEFT ankle injury. He tells me that he was walking down a muddy slippery hill and inverted his left ankle. This occurred approx 30min [employer]. Since that time has been unable to weight bear. Nothing OTC for discomfort. Denies numbness or tingling. - History of Current Complaint Stated Complaint: LT ANKLE INJURY PER PT Hx Obtained From: Patient Severity Initially: Moderate Severity Currently: Moderate Pain Intensity: 5 Pain Scale Used: 0-10 Numeric - Allergies/Home Medications Allergies/Adverse Reactions: Allergies Allergy/AdvReac Type Severity Reaction Status Date / Time No Known Allergies Allergy Verified 08/16/19 18:13 Home Medications: Home Medications Escitalopram Oxalate [Lexapro] 10 mg PO BEDTIME 08/16/19 [History Confirmed 07/25] [place] Carbonate CAP 300 mg PO QAM 08/16/19 [History Confirmed 08/16/19] [place] Carbonate ER TAB* 600 mg PO BEDTIME 08/16/19 [History Confirmed 08/16/19 ] QUEtiapine XR TAB* [Seroquel Xr 50 MG TAB*] 75 mg PO BEDTIME 08/16/19 [History Confirmed 08/16/19] PMH/Surg Hx/FS Hx/Imm Hx Endocrine/Hematology History: Denies: Hx Anticoagulant Therapy, Hx Diabetes Cardiovascular History: Denies: Hx Hypertension Respiratory History: Reports: Hx Asthma Sensory History: Denies: Hx Contacts or Glasses, Hx Hearing Aid Opthamlomology History: Denies: Hx Contacts or Glasses Psychiatric History: Reports: Hx Depression, Hx Bipolar Disorder Denies: Hx Eating Disorder, Hx Inpatient Treatment, Hx Community Mental Health Tx, Hx of Violent Episodes Against Others - Surgical History Surgical History: Yes Surgery Procedure, Year, and Place: bilateral ear lobe age 14 - Immunization History Immunizations Up to Date: Yes - Family History Known Family History: Positive: None, Other - depression - Social History Occupation: Student Lives: Dormitory/Roommates Alcohol Use: Occasionally Hx Substance Use: Yes Substance Use Type: Reports: Marijuana Substance Use Comment - Amount & Last Used: 2-3 week Hx Tobacco Use: Yes Smoking Status (MU): Light Every Day Tobacco Smoker Type: Cigarettes Amount Used/How Often: 2-3 cigarettes per week Review of Systems Constitutional: Negative Cardiovascular: Negative Respiratory: Negative Gastrointestinal: Negative Musculoskeletal: Other - Left ankle pain Skin: Negative Neurological: Negative Psychological: Normal All Other Systems Reviewed And Are Negative: No Physical Exam - Summary Physical Exam Summary: GENERAL: NAD. WDWN. No pain distress. SKIN: No rashes, sores, lesions, or open wounds. CHEST: No accessory muscle use. Breathing comfortably and in no distress. CV: Pulses intact PT and DP. Cap refill <2seconds MSK: LEFT ANKLE: Moderate edema about ankle joint. TTP about lateral malleolus. Decreased ROM due to pain. NEURO: Alert. Sensations intact and symmetric B/L LEs PSYCH: Age appropriate behavior. Triage Information Reviewed: Yes Vital Signs On Initial Exam: Vital Signs: Temp Pulse Resp BP Pulse Ox 98 F 90 16 130/85 96 08/16/19 18:10 08/16/19 18:10 08/16/19 18:10 08/16/19 18:10 08/16/19 18:10 Vital Signs Reviewed: Yes Procedures - Sedation Patient Received Moderate/Deep Sedation with Procedure: No - Splinting 1 Location: left ankle Hand-Made Type: orthoglass Splint: sugar-tong Pre-Proc Neuro Vasc Exam: normal Post-Proc Neuro Vasc Exam: normal Splint Applied by Provider: Vinny Lozano - Laboratory Lab Statement: Any lab studies that have been ordered have been reviewed, and results considered in the medical decision making process. - Radiology Ankle XR Radiology Interpretation Completed By: ED Physician Summary of Radiographic Findings: Spiral fx distal fib - reviewed with Dr. Gallegos Lower Extremity Course/Dx - Course Course Of Treatment: XR with spiral fracture of distal fibula. Pt splinted in an Orthoglass posterior walking and sugartong splint. Provided with crutches to be non-weight bearing. [place] BID prn severe pain. He plans to return home to [place] in 2 days - recommended following up with an Ortho surgeon in his hometown. - Diagnoses Provider Diagnoses: Spiral fracture of shaft of fibula Discharge ED - Sign-Out/Discharge Documenting (check all that apply): Patient Departure - Discharge Plan Condition: Stable Disposition: HOME Prescriptions: HYDROcodone/ACETAMIN 5-325 MG* [[place] 5-325 TAB*] 1 tab PO BID PRN #6 tab MDD 2 PRN Reason: Pain - Severe Patient Education Materials: Ankle Fracture (ED) Referrals: No Primary Care Phys,NOPCP [Primary Care Provider] - Juan F Webb MD [Medical Doctor] - 2 Days Additional Instructions: If you develop a fever, shortness of breath, chest pain, new or worsening symptoms - please call your PCP or go to the ED immediately. 1) The X-Ray of your ankle showed a fracture today 2) Please rest, ice, and elevate your ankle to reduce pain. Keep the splint clean, dry, and intact. Use the crutches to be non-weight bearing. 3) May take tylenol as directed for discomfort 4) Please call Orthopedics at the number below to schedule an appointment within 2-3 days or follow up with an Orthopedic doctor in your hometown - Billing Disposition and Condition Condition: STABLE Disposition: Home
[2019-08-16] MEDS ORDERED: Acetaminophen TAB* 325 MG PO ONE (18:34)
--- OUTSIDE RECORDS SUMMARY | 2019-08-16 19:06 | XMS REPORT | Continuity of Care Document ---
:2000 External Reference #:[id number] Demographics Phone Unavailable Preferred Language Unknown Marital Status Unknown Religion Affiliation Unknown Race Unknown Ethnic Group Unknown Author Name Gage German M.D. (transmitted by agent of provider Meg Garcia ) Address [address] [place] [address] [place] [address] Problems Description No Information Available Social History Type Date Description Comments Sex Unknown Allergies, Adverse Reactions, Alerts Description No Information Available Medications Description No Information Available Immunizations Description No Information Available Vital Signs Description No Information Available Results Description No Information Available Procedures Description No Information Available Medical Devices Description No Information Available Encounters Description No Information Available Assessments Description No Information Available Plan of Treatment No Information Available Functional Status Description No Information Available Mental Status Description No Information Available Referrals Description No Information Available
[2019-08-16 19:24] VITALS: BP 128/79
== END 2019-08-16 19:23 | disposition home or self-care (01) ==
LOC: ED 18:08
DX: S82.442A Displaced spiral fracture of shaft of left fibula, initial encounter for closed fracture (principal); X50.9XXA Other and unspecified overexertion or strenuous movements or postures, initial encounter; Y92.9 Unspecified place or not applicable; Z79.899 Other long term (current) drug therapy; F32.9 Major depressive disorder, single episode, unspecified; F17.210 Nicotine dependence, cigarettes, uncomplicated
CPT/HCPCS: 99282; A9270-GY